=== PATIENT | female | born 1985 | race American Indian/Alaskan Native ===

== ENCOUNTER 2019-03-12 14:40 | Observation (INO) | payer OTHER ==
--- NOTE | 2019-03-12 14:44 | Emergency Department Report ---
Blank Doc - Documentation Documentation: 33-year-old female that presents with syncopal episode with n/v and abdominal pain. This initial assessment/diagnostic orders/clinical plan/treatment(s) is/are subject to change based on patient's health status, clinical progression and re- assessment by fellow clinical providers in the ED. Further treatment and workup at subsequent clinical providers discretion. Patient/guardians urged not to elope from the ED as their condition may be serious if not clinically assessed and managed. Initial orders include: 1- Patient sent to [facility] for further evaluation and treatment 2- labs 3- UA 4- EKG
[2019-03-12] MEDS ORDERED: SODIUM CHLORIDE 0.9% 1000 ML 1,000 ML IV ONE ×4 (15:10→20:29)
[2019-03-12] MEDS ORDERED: KETOROLAC 30 MG/1 ML INJ IV ONE ×2 (15:10→17:25)
[2019-03-12] MEDS ORDERED: FAMOTIDINE 20 MG/2 ML INJ IV ONE (15:11)
[2019-03-12] MEDS ORDERED: METOCLOPRAMIDE 10 MG/2 ML INJ IV ONE (15:11)
[2019-03-12 15:20] LABS: Basophils # (Auto) 0.1 K/mm3 (0.0-0.1); Basophils % (Auto) 0.4 % (0.0-1.8); Hematocrit 40.1 % (30.3-42.9); Hemoglobin 13.9 gm/dl (10.1-14.3); Lymphocytes # (Auto) 2.2 K/mm3 (1.2-5.4); Lymphocytes % (Auto) 12.1 % (13.4-35.0); Mean Corpuscular HGB Conc 35 % (30-34); Mean Corpuscular Volume 93 fl (79-97); Monocytes % (Auto) 5.3 % (0.0-7.3); Platelet Count 196 K/mm3 (140-440); Red Blood Count 4.34 M/mm3 (3.65-5.03)
--- NOTE | 2019-03-12 15:20 | Emergency Department Report ---
<CHANNING DUFFY III - Last Filed: 03/12/19 20:27> ED N/V/D HPI - General Chief complaint: Nausea/Vomiting/Diarrhea Stated complaint: FAINTED/VOMIT/WEAK Time Seen by Provider: 03/12/19 14:43 - Related Data Home Medications Medication Instructions Recorded Confirmed Last Taken No Known Home Medications [No 03/12/19 03/12/19 Unknown Reported Home Medications] Allergies Allergy/AdvReac Type Severity Reaction Status Date / Time No Known Allergies Allergy Unverified 03/12/19 14:58 ED Past Medical Hx - Medications Home Medications: Home Medications Medication Instructions Recorded Confirmed Last Taken Type No Known Home Medications [No 03/12/19 03/12/19 Unknown History Reported Home Medications] ED Course - Reevaluation(s) Reevaluation #1: Patient stable for discharge however the patient able to tolerate by mouth challenge and continues to vomit even with meds. Patient will be admitted to the hospitalist service if does not stop vomiting with another round of antiemetics. I discussed plan of care outpatient. Patient agrees plan of care. At this time I will hold the patient's discharge. 03/12/19 18:31 Reevaluation #2: She continues to dry heave and redness. Patient will be given another antiemetic 03/12/19 19:23 Reevaluation #3: She continues to dry heave. Patient's blood pressure has decreased. Patient will be admitted to the hospitalist service. 03/12/19 20:27 - Consultations Consultation #1: Hospitalist consultation for admission. Hospitalist to admit patient. 03/12/19 20:29 ED Medical Decision Making - Lab Data Result diagrams: 03/12/19 14:59 03/12/19 14:59 Critical Care Time: Yes Critical care time in (mins) excluding proc time.: 35 Critical Care Time: 35 minutes ED Disposition Clinical Impression: Hypokalemia, Metabolic acidosis, SIRS (systemic inflammatory response syndrome) Nausea & vomiting Qualifiers: Vomiting type: unspecified Vomiting Intractability: intractable Qualified Code(s): R11.2 - Nausea with vomiting, unspecified Gastritis Qualifiers: Gastritis type: unspecified gastritis Chronicity: acute Gastritis bleeding: without bleeding Qualified Code(s): K29.00 - Acute gastritis without bleeding Hypotension Qualifiers: Hypotension type: unspecified hypotension type Qualified Code(s): I95.9 - Hypotension, unspecified Disposition: DC-09 OP ADMIT IP TO THIS HOSP Is pt being admited?: Yes Does the pt Need Aspirin: No Condition: Critical Time of Disposition: 18:32 <PHOENIX POLLACK - Last Filed: 03/13/19 08:26> ED N/V/D HPI - General Source: patient Mode of arrival: Ambulatory Limitations: No Limitations - History of Present Illness Initial comments: Is a 33-year-old female who presents to ED complaining of recurrent nausea and vomiting started this morning. Patient states that she does not take any medications. Patient also admits generalized abdominal pain. Describes abdominal pain as crampy and generalized all over Patient states she trying to vomit but nothing is coming out. Patient states the symptoms started suddenly this morning. Patient states she is not having any diarrhea nor did she eat anything unusual recently. Patient did mention that she had a gallbladder removed last year. MD complaint: nausea, vomiting, abdominal pain Description of Vomiting: watery ED Review of Systems ROS: Stated complaint: FAINTED/VOMIT/WEAK Other details as noted in HPI Comment: All other systems reviewed and negative ED Past Medical Hx - Past Medical History Previous Medical History?: No - Surgical History Past Surgical History?: Yes Hx Cholecystectomy: Yes ED Physical Exam - General Limitations: No Limitations General appearance: alert, in no apparent distress - Head Head exam: Present: atraumatic, normocephalic - Eye Eye exam: Present: normal appearance - ENT ENT exam: Present: mucous membranes moist - Neck Neck exam: Present: normal inspection - Respiratory Respiratory exam: Present: normal lung sounds bilaterally. Absent: respiratory distress - Cardiovascular Cardiovascular Exam: Present: regular rate, normal rhythm. Absent: systolic murmur, diastolic murmur, rubs, gallop - GI/Abdominal GI/Abdominal exam: Present: soft, normal bowel sounds. Absent: distended, tenderness, rigid, mass, bruit, pulsatile mass - Extremities Exam Extremities exam: Present: normal inspection - Back Exam Back exam: Present: normal inspection - Neurological Exam Neurological exam: Present: alert, oriented X3 - Psychiatric Psychiatric exam: Present: normal affect, normal mood - Skin Skin exam: Present: warm, dry, intact, normal color. Absent: rash ED Course Vital Signs 03/12/19 03/12/19 03/12/19 16:59 18:33 19:47 Temperature 98.3 F Pulse Rate 70 80 62 Respiratory 16 16 22 Rate Blood Pressure 97/75 Blood Pressure 135/71 116/62 [Left] O2 Sat by Pulse 98 100 98 Oximetry 03/12/19 22:00 Temperature Pulse Rate 56 L Respiratory 18 Rate Blood Pressure Blood Pressure 110/78 [Left] O2 Sat by Pulse 98 Oximetry ED Medical Decision Making - Lab Data Result diagrams: 03/12/19 14:59 03/12/19 14:59 Laboratory Last Values WBC 18.5 K/mm3 (4.5-11.0) H 03/12/19 14:59 RBC 4.34 M/mm3 (3.65-5.03) 03/12/19 14:59 Hgb 13.9 gm/dl (10.1-14.3) 03/12/19 14:59 Hct 40.1 % (30.3-42.9) 03/12/19 14:59 MCV 93 fl (79-97) 03/12/19 14:59 MCH 32 pg (28-32) 03/12/19 14:59 MCHC 35 % (30-34) H 03/12/19 14:59 RDW 13.0 % (13.2-15.2) L 03/12/19 14:59 Plt Count 196 K/mm3 (140-440) 03/12/19 14:59 Lymph % (Auto) 12.1 % (13.4-35.0) L 03/12/19 14:59 [place] % (Auto) 5.3 % (0.0-7.3) 03/12/19 14:59 Eos % (Auto) 0.0 % (0.0-4.3) 03/12/19 14:59 Baso % (Auto) 0.4 % (0.0-1.8) 03/12/19 14:59 Lymph # 2.2 K/mm3 (1.2-5.4) 03/12/19 14:59 [place] # 1.0 K/mm3 (0.0-0.8) H 03/12/19 14:59 Eos # 0.0 K/mm3 (0.0-0.4) 03/12/19 14:59 Baso # 0.1 K/mm3 (0.0-0.1) 03/12/19 14:59 Seg Neutrophils % 82.2 % (40.0-70.0) H 03/12/19 14:59 Seg Neutrophils # 15.1 K/mm3 (1.8-7.7) H 03/12/19 14:59 Sodium 145 mmol/L (137-145) 03/12/19 14:59 Potassium 3.1 mmol/L (3.6-5.0) L 03/12/19 14:59 Chloride 106.9 mmol/L (98-107) 03/12/19 14:59 Carbon Dioxide 12 mmol/L (22-30) L 03/12/19 14:59 Anion Gap 29 mmol/L 03/12/19 14:59 BUN 11 mg/dL (7-17) 03/12/19 14:59 Creatinine 0.7 mg/dL (0.7-1.2) 03/12/19 14:59 Estimated GFR > 60 ml/min 03/12/19 14:59 BUN/Creatinine Ratio 16 % 03/12/19 14:59 Glucose 109 mg/dL (65-100) H 03/12/19 14:59 Calcium 9.0 mg/dL (8.4-10.2) 03/12/19 14:59 Total Bilirubin 0.90 mg/dL (0.1-1.2) 03/12/19 14:59 AST 26 units/L (5-40) 03/12/19 14:59 ALT 18 units/L (7-56) 03/12/19 14:59 Alkaline Phosphatase 54 units/L (35-129) 03/12/19 14:59 Total Protein 7.9 g/dL (6.3-8.2) 03/12/19 14:59 Albumin 4.7 g/dL (3.9-5) 03/12/19 14:59 Albumin/Globulin Ratio 1.5 % 03/12/19 14:59 Lipase 9 units/L (13-60) L 03/12/19 14:59 HCG, Qual Negative (Negative) 03/12/19 14:59 Urine Color Yellow (Yellow) 03/12/19 15:21 Urine Turbidity Clear (Clear) 03/12/19 15:21 Urine pH 5.0 (5.0-7.0) 03/12/19 15:21 Ur Specific [place] 1.026 (1.003-1.030) 03/12/19 15:21 Urine Protein 30 mg/dl mg/dL (Negative) 03/12/19 15:21 Urine Glucose (UA) Neg mg/dL (Negative) 03/12/19 15:21 Urine Ketones 80 mg/dL (Negative) 03/12/19 15:21 Urine Blood Neg (Negative) 03/12/19 15:21 Urine Nitrite Neg (Negative) 03/12/19 15:21 Urine Bilirubin Neg (Negative) 03/12/19 15:21 Urine Urobilinogen < 2.0 mg/dL (<2.0) 03/12/19 15:21 Ur Leukocyte Esterase Neg (Negative) 03/12/19 15:21 Urine WBC (Auto) 4.0 /HPF (0.0-6.0) 03/12/19 15:21 Urine RBC (Auto) 1.0 /HPF (0.0-6.0) 03/12/19 15:21 U Epithel Cells (Auto) 4.0 /HPF (0-13.0) 03/12/19 15:21 Urine Mucus Few /HPF 03/12/19 15:21 - Radiology Data Radiology results: report reviewed, image reviewed COMPARISON: None TECHNIQUE: Routine abdominal and pelvic CT exam performed without contrast. Lack of intravenous contrast limits evaluation of the vascular and solid organs.. All CT scans at this location are performed using CT dose reduction for ALARA by means of automated exposure control. FINDINGS: CT ABDOMEN: Lung Bases: No significant abnormality. Liver: No significant abnormality. Biliary: Gallbladder is surgically absent. Spleen: No significant abnormality. Unenlarged. Pancreas: No significant abnormality. Adrenals: No significant abnormality. Kidneys: No stones, pelvocaliectasis, ureterectasis. No perinephric or periureteral stranding. Lymphatics: No lymphadenopathy. Vasculature: No significant abnormality. Bowel/Peritoneum: No significant abnormality. No free air. No free fluid. Normal appendix. CT PELVIC: : No significant abnormality. There are some normal follicles in both ovaries. Lymphatics: No lymphadenopathy. Osseous Structures: No aggressive appearing osseous lesions. Additional Findings: There are multiple tiny injection granulomas in the buttocks bilaterally. IMPRESSION: 1. No acute findings. Signer Name: Valente Welch MD Signed: 03/12/2019 5:08 PM Workstation Name: [id number] Transcribed By: MARTHA Dictated By: Valente Welch MD Electronically Authenticated By: Valente Welch MD Signed Date/Time: 03/12/19 1708 - Medical Decision Making 33-year-old female who presents with acute vomiting. Patient had elevated WBCs which is mostly secondary to acute vomiting.she also had reduced potassium. All labs within normal limits. Patient received 2 liter of fluids, Reglan, Pepcid and pain medication. CT scan of the abdomen and pelvis shows no acute findings. See report above. As the patient to follow-up with my deposit refund clerk as referred. Patient was able to stop active vomiting ED upon reevaluation and was sleeping comfortably in ED bed. Critical care attestation.: If time is entered above; I have spent that time in minutes in the direct care of this critically ill patient, excluding procedure time. ED Disposition Is pt being admited?: No Does the pt Need Aspirin: No Time of Disposition: 17:23
[2019-03-12 15:38] LABS: Bilirubin,Urine NEG (Negative); Blood,Urine NEG (Negative); Color,Urine Yellow (Yellow); Mucus,Urine FEW /HPF; Urobilinogen,Urine < 2.0 mg/dL (<2.0)
[2019-03-12 15:42] LABS: Alanine Aminotransferase 18 units/L (7-56); Albumin 4.7 g/dL (3.9-5); BUN/Creatinine Ratio 16; Blood Urea Nitrogen 11 mg/dL (7-17); Hemolysis Index 8
[2019-03-12] MEDS ORDERED: POTASSIUM CHLORIDE ER 20 MEQ TAB PO ONE ×2 (15:58→16:03)
[2019-03-12] MEDS ORDERED: LORazepam 2 MG/ML VIAL ONE (16:58)
[2019-03-12] MEDS ORDERED: LORazepam 2 MG/ML VIAL IV ONE (16:59)
--- NOTE | 2019-03-12 17:12 | Cat Scan Report ---
CT ABDOMEN AND PELVIS WITHOUT CONTRAST HISTORY: Abdominal pain, nausea and vomiting COMPARISON: None TECHNIQUE: Routine abdominal and pelvic CT exam performed without contrast. Lack of intravenous cont rast limits evaluation of the vascular and solid organs.. All CT scans at this location are performed using CT dose reduction for ALARA by means of automated exposure control. FINDINGS: CT ABDOMEN: Lung Bases: No significant abnormality. Liver: No significant abnormality. Biliary: Gallbladder is surgically absent. Spleen: No significant abnormality. Unenlarged. Pancreas: No significant abnormality. Adrenals: No significant abnormality. Kidneys: No stones, pelvocaliectasis, ureterectasis. No perinephric or periureteral stranding. Lymphatics: No lymphadenopathy. Vasculature: No significant abnormality. Bowel/Peritoneum: No significant abnormality. No free air. No free fluid. Normal appendix. CT PELVIC: : No significant abnormality. There are some normal follicles in both ovaries. Lymphatics: No lymphadenopathy. Osseous Structures: No aggressive appearing osseous lesions. Additional Findings: There are multiple tiny injection granulomas in the buttocks bilaterally. IMPRESSION: 1. No acute findings. Signer Name: Valente Welch MD Signed: 03/12/2019 5:08 PM Workstation Name: [id number]
[2019-03-12] MEDS ORDERED: ONDANSETRON 4 MG/2 ML INJ IV ONE (19:22)
[2019-03-12] MEDS ORDERED: PROMETHAZINE 25 MG RECT SUPP PR ONE (19:22)
[2019-03-12] MEDS ORDERED: HYDROmorphone 1 MG/1 ML INJ ONE (20:08)
[2019-03-12] MEDS ORDERED: HYDROmorphone 1 MG/1 ML INJ IV ONE (20:11)
[2019-03-12] MEDS ORDERED: ONDANSETRON 4 MG/2 ML INJ IV PRN (20:28)
[2019-03-12] MEDS ORDERED: ALBUTEROL 2.5 MG/3 ML NEBU IH PRN (20:28)
[2019-03-12] MEDS ORDERED: ACETAMINOPHEN 325 MG TAB PO PRN (20:28)
--- NOTE | 2019-03-12 20:32 | History and Physical Report ---
History of Present Illness Chief complaint: My stomach hurts History of present illness: 33 YO Female with NO PMH presents to ED for evaluation. Pt states that she has experienced abdominal pain, nausea and multiple episodes of vomiting year-old female who presents to ED complaining of recurrent nausea and vomiting started this morning. Patient states that her pain is 4/10, intermittent, generalized, constant, worsened with movement. Pt also reports that she is unable to tolerate oral diet. Pt transported to [facility] via private vehicle. Pt seen and evaluated in ED and found to have symptoms consistent with SIRS, Gastritis, and Intractible nausea and vomiting. Pt placed in observation status, and admitted to medical floor. Pt treated with IV antibiotic therapy and supportive care. Pt denies fever, chills, CP, palpitations, Trauma, BRBPR, Ingestion of Food/Water from new or different sources. No prior admission for review. No medication listed for reconciliation at time of admission. Past History Past Medical History: No medical history, other (reviewed) Past Surgical History: cholecystectomy Social history: single. denies: smoking, alcohol abuse, prescription drug abuse Family history: hypertension Medications and Allergies Allergies Allergy/AdvReac Type Severity Reaction Status Date / Time No Known Allergies Allergy Unverified 03/12/19 14:58 Home Medications Medication Instructions Recorded Confirmed Last Taken Type No Known Home Medications [No 03/12/19 03/12/19 Unknown History Reported Home Medications] Active Meds: Active Medications Acetaminophen (Tylenol) 650 mg PO Q4H PRN PRN Reason: Pain MILD(1-3)/Fever >100.5/RODRIGUEZ Albuterol (Proventil) 2.5 mg IH Q4HRT PRN PRN Reason: Shortness Of Breath Sodium Chloride (Nacl 0.9% 1000 Ml) 1,000 mls @ 999 mls/hr IV BOLUS ONE Stop: 03/12/19 21:29 Sodium Chloride (Nacl 0.9% 1000 Ml) 1,000 mls @ 125 mls/hr IV DIRECT TRACE Ondansetron HCl (Zofran) 4 mg IV Q8H PRN PRN Reason: Nausea And Vomiting Sodium Chloride (Sodium Chloride Flush Syringe 10 Ml) 10 ml IV BID TRACE Sodium Chloride (Sodium Chloride Flush Syringe 10 Ml) 10 ml IV PRN PRN PRN Reason: LINE FLUSH Review of Systems Constitutional: no weight loss, no weight gain, no fever, no chills Breasts: no change in shape, no swelling, no mass Cardiovascular: no chest pain, no rapid/irregular heart beat, no edema, no lightheadedness Respiratory: no cough, no cough with sputum Gastrointestinal: abdominal pain, nausea, vomiting, loss of appetite, no diarrhea, no constipation, no BRBPR, no melena, no hematochezia Genitourinary Female: no pelvic pain, no flank pain, no menorrhagia, no dysuria, no urinary frequency, no urgency Rectal: no pain, no incontinence, no bleeding Musculoskeletal: no neck stiffness, no neck pain, no shooting arm pain, no arm numbness/tingling, no shooting leg pain, no redness of joints Integumentary: no rash, no pruritis, no redness, no wounds, no jaundice, no boils Neurological: no paralysis, no weakness, no parathesias, no numbness, no tinglin g, no seizures Psychiatric: no anxiety, no memory loss, no change in sleep habits, no insomnia, no change in appetite, no change in libido, no suicidal ideation, no disorienta tion Endocrine: no cold intolerance, no polyphagia, no polyuria, no nocturia Hematologic/Lymphatic: no easy bruising, no easy bleeding, no lymphadenopathy Allergic/Immunologic: no allergic rhinitis, no wheezing, no persistent infections, no angioedema Exam - Constitutional Vitals: Temp Pulse Resp BP Pulse Ox 98.3 F 62 22 97/75 98 03/12/19 19:47 03/12/19 19:47 03/12/19 19:47 03/12/19 19:47 03/12/19 19:47 General appearance: Present: mild distress - EENT Eyes: Present: PERRL ENT: hearing intact, clear oral mucosa - Neck Neck: Present: supple, normal ROM - Respiratory Respiratory effort: normal Respiratory: bilateral: CTA - Cardiovascular Heart Sounds: Present: S1 & S2. Absent: rub, click - Extremities Extremities: pulses symmetrical, No edema Peripheral Pulses: within normal limits - Abdominal General gastrointestinal: Present: soft, tender, non-distended, normal bowel sounds. Absent: hypoactive bowel sounds, hepatomegaly, splenomegaly, mass, hernia Female genitourinary: Present: normal - Integumentary Integumentary: Present: clear, warm, dry - Musculoskeletal Musculoskeletal: gait normal, strength equal bilaterally - Psychiatric Psychiatric: appropriate mood/affect, intact judgment & insight - Neurologic Neurologic: CNII-XII intact, moves all extremities Results - Labs CBC & Chem 7: 03/12/19 14:59 03/12/19 14:59 Labs: Abnormal lab results 03/12/19 03/12/19 03/12/19 Range/Units 14:59 14:59 14:59 WBC 18.5 H (4.5-11.0) K/mm3 MCHC 35 H (30-34) % RDW 13.0 L (13.2-15.2) % Lymph % (Auto) 12.1 L (13.4-35.0) % [place] # 1.0 H (0.0-0.8) K/mm3 Seg Neutrophils % 82.2 H (40.0-70.0) % Seg Neutrophils # 15.1 H (1.8-7.7) K/mm3 Potassium 3.1 L (3.6-5.0) mmol/L Carbon Dioxide 12 L (22-30) mmol/L Glucose 109 H (65-100) mg/dL Lipase 9 L (13-60) units/L Assessment and Plan - Patient Problems (1) SIRS (systemic inflammatory response syndrome) Current Visit: Yes Status: Acute Plan to address problem: IV antibiotic therapy, CBC, CMP, CT Abdomen/Pelvis, Abdominal ultrasound, lactic acid, urinalysis, chest x ray (2) Intractable nausea and vomiting Current Visit: Yes Status: Acute Plan to address problem: antiemetic therapy, bowel rest, serial abdominal exam, CT abdomen (3) Gastritis Current Visit: Yes Status: Acute Qualifiers: Gastritis type: unspecified gastritis Chronicity: acute Gastritis bleeding: without bleeding Qualified Code(s): K29.00 - Acute gastritis without bleeding Plan to address problem: IV antibiotic therapy, PPI therapy, antiemetic therapy, IVF resuscitation therapy. (4) DVT prophylaxis Current Visit: Yes Status: Acute Plan to address problem: SCD to BLE while in bed, Pt ambulatory
[2019-03-12] MEDS ORDERED: SODIUM BICARB 8.4% 50 MEQ/50 ML SYRINGE IV ONE ×2 (20:33→21:16)
[2019-03-12] MEDS ORDERED: SODIUM CHLORIDE 0.9% 1000 ML 1,000 ML IV SCH (21:00)
[2019-03-12] MEDS ORDERED: SODIUM CHLORIDE 0.9% 1000 ML 1,000 ML ONE (21:12)
[2019-03-12] MEDS ORDERED: metroNIDAZOLE/NS 500 MG/100 ML 500 MG/100 ML BAG IV ONE (21:14)
[2019-03-12] MEDS: metroNIDAZOLE/NS 500 MG/100 ML 500 MG/100 ML BAG IV SCH (21:33)
--- NOTE | 2019-03-12 22:15 | Ultrasound Report ---
ULTRASOUND ABDOMEN, COMPLETE INDICATION: abdominal pain. COMPARISON: CT of the abdomen and pelvis done earlier on 03/12/2019. FINDINGS: Pancreas: A vague 3.8 x 3.4 x 3.1 cm hypoechoic structure was measured in the region of the tail of t he pancreas. In correlation with the recent CT, this appears to be a small splenule. Abdominal Aorta: No significant abnormality. IVC: No significant abnormality. Liver: The liver measures 19 cm in length. No significant abnormality. Normal hepatopedal blood flow in the main portal vein. Gallbladder: Surgically absent. Bile ducts: No significant abnormality. Common bile duct measures 1.1 mm. Right kidney: 11.0 cm in length. No significant abnormality. Left kidney: 11.0 cm in length. No significant abnormality. Spleen: No significant abnormality. Free fluid: None. Additional Findings: None. IMPRESSION: 1. No acute findings. 2. Previous cholecystectomy. Signer Name: Valente Welch MD Signed: 03/12/2019 10:11 PM Workstation Name: [id number]
[2019-03-13] MEDS: PIPERACIL/TAZOBACTA 4.5/NS 100 4.5 GM/100 ML VIAL IV SCH ×2 (00:14→05:55)
[2019-03-13 05:24] LABS: Amphetamine Screen,Urine PRESUMPTIVE NEGATIVE; Benzodiazepines Screen,Urine PRESUMPTIVE NEGATIVE; Cocaine Screen,Urine PRESUMPTIVE NEGATIVE; Methadone Screen,Urine PRESUMPTIVE NEGATIVE; Opiate Screen,Urine PRESUMPTIVE NEGATIVE
[2019-03-13 05:33] LABS: Cannabinoid Screen,Urine PRESUMPTIVE POSITIVE
[2019-03-13] MEDS: metroNIDAZOLE/NS 500 MG/100 ML 500 MG/100 ML BAG IV SCH (05:55)
[2019-03-13] MEDS ORDERED: SODIUM CHLORIDE 0.9% 1000 ML 2,000 ML IV ONE (09:00)
[2019-03-13 09:24] LABS: Basophils % (Auto) 0.2 % (0.0-1.8); Eosinophils % (Auto) 0.1 % (0.0-4.3); Hematocrit 32.6 % (30.3-42.9); Hemoglobin 11.3 gm/dl (10.1-14.3); Lymphocytes # (Auto) 2.2 K/mm3 (1.2-5.4); Lymphocytes % (Auto) 22.7 % (13.4-35.0); Mean Corpuscular HGB Conc 35 % (30-34); Mean Corpuscular Volume 92 fl (79-97); Monocytes % (Auto) 10.4 % (0.0-7.3); Platelet Count 105 K/mm3 (140-440); Red Blood Count 3.54 M/mm3 (3.65-5.03)
[2019-03-13 09:35] LABS: Alanine Aminotransferase 14 units/L (7-56); Albumin 3.6 g/dL (3.9-5); BUN/Creatinine Ratio 18; Blood Urea Nitrogen 11 mg/dL (7-17); Calcium 7.2 mg/dL (8.4-10.2); Hemolysis Index 2
[2019-03-13] MEDS ORDERED: MORPHINE 2 MG/1 ML INJ IV PRN (10:29)
--- NOTE | 2019-03-13 10:52 | Discharge Summary ---
Providers - Providers Date of Admission: 03/12/19 20:28 Attending physician: LITO MELENDEZ MD Primary care physician: [employer] Hospitalization Reason for admission: Interactable nausea and vomiting Condition: Stable Hospital course: 33 YO Female with NO PMH presents to ED for evaluation. Pt states that she has experienced abdominal pain, nausea and multiple episodes of vomiting year-old female who presents to ED complaining of recurrent nausea and vomiting started this morning. Patient states that her pain is 4/10, intermittent, generalized, constant, worsened with movement. Pt also reports that she is unable to tolerate oral diet. Pt transported to [facility] via private vehicle. Pt seen and evaluated in ED and found to have symptoms consistent with SIRS, Gastritis, and Intractible nausea and vomiting. Pt placed in observation status, and admitted to medical floor. Pt treated with IV antibiotic therapy and supportive care. Pt denies fever, chills, CP, palpitations, Trauma, BRBPR, Ingestion of Food/Water from new or different sources. No prior admission for review. No medication listed for reconciliation at time of admission. * Patient improved with Hydration. * Tbili was slightly elevated, Potassium improved with replacement * Patient was started on Diet * Counselling was provided about THC but patient insists that it helps her stomach * She is non toxic appearing and can be discharged with outpatient follow up with PCP and GI, the latter if needed Dx SIRS without organ dysfunction Gastritis Hyperemesis secondary to THC Interactable nausea and vomiting as noted above Hypokalemia Leukocytosis Disposition: DC-01 TO HOME OR SELFCARE Time spent for discharge: 35 mins Core Measure Documentation - Palliative Care Palliative Care/ Comfort Measures: Not Applicable - Core Measures Any of the following diagnoses?: none Exam - Constitutional Vitals: Temp Pulse Resp BP Pulse Ox 99.1 F 53 L 16 99/54 94 03/13/19 05:34 03/13/19 05:34 03/13/19 05:34 03/13/19 05:34 03/13/19 08:42 General appearance: Present: no acute distress, well-nourished - EENT Eyes: Present: EOM intact ENT: hearing intact, clear oral mucosa, other (Perioral Piercing) - Neck Neck: Present: supple - Respiratory Respiratory effort: normal Respiratory: bilateral: CTA - Cardiovascular Rhythm: regular Heart Sounds: Present: S1 & S2, systolic murmur - Extremities Extremities: no ischemia, pulses intact, pulses symmetrical, No edema, normal temperature, normal color, Full ROM - Abdominal General gastrointestinal: Present: soft, non-tender, non-distended, normal bowel sounds - Integumentary Integumentary: Present: warm, dry (PIERCING) - Musculoskeletal Musculoskeletal: strength equal bilaterally, generalized weakness - Psychiatric Psychiatric: appropriate mood/affect, intact judgment & insight, cooperative - Neurologic Neurologic: CNII-XII intact, moves all extremities - Allied Health Allied health notes reviewed: nursing Plan Activity: advance as tolerated, fall precautions Diet: low fat Special Instructions: smoking cessation Follow up with: PRIMARY CARE, [Primary Care Provider] - 7 Days Prescriptions: Ondansetron [Zofran Odt] 4 mg PO Q8HR #20 tabpat
[2019-03-13] MEDS: POTASSIUM CHLORIDE 10 MEQ 10 MEQ/100 ML BAG IV SCH ×2 (11:17→13:05)
[2019-03-13 12:41] LABS: Bilirubin,Direct 0.3 mg/dL (0-0.2)
[2019-03-13 15:23] VITALS: BP 120/80
== END 2019-03-13 15:22 | disposition home or self-care (01) ==
LOC: ED 14:40 → 3A 20:28
PROVIDERS: ADMIT Internal Medicine; ATTEND Internal Medicine
DX: K29.70 Gastritis, unspecified, without bleeding (principal); R65.10 Systemic inflammatory response syndrome (SIRS) of non-infectious origin without acute organ dysfunction; R11.2 Nausea with vomiting, unspecified; Z90.49 Acquired absence of other specified parts of digestive tract; I95.9 Hypotension, unspecified
CPT/HCPCS: 36415; 74176; 76700; 80053; 80307; 81001; 82140; 82247; 82248; 82550; 83690; 84703; 85025; 93005; 93010; 96361; 96365; 96366; 96367; 96368; 96375; 96376; 99291; G0378; J1170; J1885; J2060; J2405; J2543; J2765; J3480; J7030

== ENCOUNTER 2019-03-14 12:18 | Observation (INO) | payer SELFPAY ==
[2019-03-14] MEDS ORDERED: ONDANSETRON 4 MG/2 ML INJ ONE (12:40)
[2019-03-14] MEDS ORDERED: ONDANSETRON 4 MG/2 ML INJ IV ONE (12:40)
[2019-03-14] MEDS ORDERED: PROMETHAZINE 25 MG RECT SUPP PR ONE ×3 (12:52→12:55)
[2019-03-14] MEDS ORDERED: fentaNYL 100 MCG/2 ML INJ IV ONE ×3 (12:54→14:28)
[2019-03-14] MEDS ORDERED: diphenhydrAMINE 50 MG/ML VIAL IV ONE ×2 (12:55)
[2019-03-14] MEDS ORDERED: SODIUM CHLORIDE 0.9% 1000 ML 1,000 ML IV ONE (13:24)
--- NOTE | 2019-03-14 13:32 | Emergency Department Report ---
HPI - General Chief Complaint: Abdominal Pain Time Seen by Provider: 03/14/19 12:42 - HPI HPI: Room 22 The patient is a 33-year-old female presented with a chief complaint of intractable nausea or vomiting. Patient was discharged yesterday for intracta ble nausea and vomiting. During the patient's recent admission she had a CT abdomen and pelvis performed as well as right upper quadrant SO both which were negative. The patient states she was tolerating po just prior to discharge however at home and her symptoms returned. Patient states she's had intractable nausea vomiting. Patient complains of periumbilical abdominal pain. Patient describes abdominal pain as a soreness from the frequent vomiting. The patient gets her pain score "20/10." Location: [See above] Duration: [See above] Quality: [See above] Severity: [See above] Timing: [See above] Context: [See above] Modifying factors: [See above] Associated signs and symptoms: [see above] ED Past Medical Hx - Surgical History Past Surgical History?: Yes Hx Cholecystectomy: Yes - Family History Family history: no significant - Social History Smoking Status: Never Smoker Substance Use Type: None (denies illicit drug use), Alcohol - Medications Home Medications: Home Medications Medication Instructions Recorded Confirmed Last Taken Type Ondansetron [Zofran Odt] 4 mg PO Q8HR #20 tab.rapdis 03/13/19 Unknown Rx ED Review of Systems ROS: Stated complaint: VOMIT/ABD PAIN EXTREME Other details as noted in HPI Constitutional: denies: fever Eyes: denies: eye pain ENT: denies: throat pain Respiratory: no symptoms reported Cardiovascular: denies: chest pain Endocrine: no symptoms reported Gastrointestinal: abdominal pain, nausea, vomiting Genitourinary: denies: dysuria Musculoskeletal: denies: back pain Neurological: denies: headache Physical Exam - Physical Exam Vital Signs: Vital Signs 03/14/19 03/14/19 03/14/19 12:21 13:09 13:11 Temperature 97.9 F 98.5 F Pulse Rate 67 98 H Respiratory 16 18 16 Rate Blood Pressure 135/74 127/74 [Right] O2 Sat by Pulse 99 100 100 Oximetry Physical Exam: GENERAL: The patient is well-developed well-nourished female lying on stretcher exhibiting frequent vomiting and gagging. [] HEENT: Normocephalic. Atraumatic. Extraocular motions are intact. Patient has moist mucous membranes. NECK: Supple. Trachea midline CHEST/LUNGS: Clear to auscultation. There is no respiratory distress noted. HEART/CARDIOVASCULAR: Regular. There is no tachycardia. There is no gallop rub or murmur. ABDOMEN: Abdomen is soft, but sore from frequent vomiting. Patient has normal bowel sounds. There is no abdominal distention. SKIN: There is no rash. There is no edema. There is no diaphoresis. NEURO: The patient is awake, alert, and oriented. The patient is cooperative. The patient has normal speech MUSCULOSKELETAL: There is no evidence of acute injury. ED Course Vital Signs 03/14/19 03/14/19 03/14/19 12:21 13:09 13:11 Temperature 97.9 F 98.5 F Pulse Rate 67 98 H Respiratory 16 18 16 Rate Blood Pressure 135/74 127/74 [Right] O2 Sat by Pulse 99 100 100 Oximetry ED Medical Decision Making - Lab Data Result diagrams: 03/14/19 14:00 03/14/19 14:00 Laboratory Tests 03/14/19 03/14/19 03/14/19 14:00 14:00 14:00 WBC 6.0 RBC 4.03 Hgb 12.9 Hct 36.7 MCV 91 MCH 32 MCHC 35 H RDW 12.6 L Plt Count 105 L Lymph % (Auto) 19.3 [place] % (Auto) 6.2 Eos % (Auto) 0.1 Baso % (Auto) 0.5 Lymph # 1.2 [place] # 0.4 Eos # 0.0 Baso # 0.0 Seg Neutrophils % 73.9 H Seg Neutrophils # 4.5 PT 13.0 INR 0.99 APTT 28.4 Sodium 137 Potassium 3.1 L Chloride 103.6 Carbon Dioxide 16 L Anion Gap 21 BUN 6 L Creatinine 0.6 L Estimated GFR > 60 BUN/Creatinine Ratio 10 Glucose 70 Calcium 8.6 D Total Bilirubin 1.50 H AST 38 ALT 29 Alkaline Phosphatase 45 Total Protein 7.1 D Albumin 4.1 Albumin/Globulin Ratio 1.4 Lipase 8 L HCG, Qual Urine Color Urine Turbidity Urine pH Ur Specific [place] Urine Protein Urine Glucose (UA) Urine Ketones Urine Blood Urine Nitrite Urine Bilirubin Urine Urobilinogen Ur Leukocyte Esterase Urine WBC (Auto) Urine RBC (Auto) U Epithel Cells (Auto) Urine Mucus 03/14/19 03/14/19 14:00 Unknown WBC RBC Hgb Hct MCV MCH MCHC RDW Plt Count Lymph % (Auto) [place] % (Auto) Eos % (Auto) Baso % (Auto) Lymph # [place] # Eos # Baso # Seg Neutrophils % Seg Neutrophils # PT INR APTT Sodium Potassium Chloride Carbon Dioxide Anion Gap BUN Creatinine Estimated GFR BUN/Creatinine Ratio Glucose Calcium Total Bilirubin AST ALT Alkaline Phosphatase Total Protein Albumin Albumin/Globulin Ratio Lipase HCG, Qual Negative Urine Color Straw Urine Turbidity Clear Urine pH 6.0 Ur Specific [place] 1.009 Urine Protein <15 mg/dl Urine Glucose (UA) Neg Urine Ketones 20 Urine Blood Lg Urine Nitrite Neg Urine Bilirubin Neg Urine Urobilinogen < 2.0 Ur Leukocyte Esterase Neg Urine WBC (Auto) 1.0 Urine RBC (Auto) 77.0 U Epithel Cells (Auto) 6.0 Urine Mucus Few - Differential Diagnosis gastroparesis, gastritis Critical care attestation.: If time is entered above; I have spent that time in minutes in the direct care of this critically ill patient, excluding procedure time. ED Disposition Clinical Impression: Intractable nausea and vomiting Disposition: OP ADMIT IP TO THIS HOSP Is pt being admited?: Yes Does the pt Need Aspirin: No Condition: Fair Instructions: Abdominal Pain (ED) Time of Disposition: 15:13 (hospitalist notified (Dr Marshall))
[2019-03-14 14:04] LABS: Bilirubin,Urine NEG (Negative); Blood,Urine LG (Negative); Color,Urine Straw (Yellow); Mucus,Urine FEW /HPF; Protein,Urine <15 mg/dL mg/dL (Negative); Urobilinogen,Urine < 2.0 mg/dL (<2.0)
[2019-03-14 14:21] LABS: Basophils % (Auto) 0.5 % (0.0-1.8); Eosinophils % (Auto) 0.1 % (0.0-4.3); Hematocrit 36.7 % (30.3-42.9); Hemoglobin 12.9 gm/dl (10.1-14.3); Lymphocytes # (Auto) 1.2 K/mm3 (1.2-5.4); Lymphocytes % (Auto) 19.3 % (13.4-35.0); Mean Corpuscular HGB Conc 35 % (30-34); Mean Corpuscular Volume 91 fl (79-97); Monocytes # (Auto) 0.4 K/mm3 (0.0-0.8); Monocytes % (Auto) 6.2 % (0.0-7.3); Platelet Count 105 K/mm3 (140-440); Red Blood Count 4.03 M/mm3 (3.65-5.03); Red Cell Distribution Width 12.6 % (13.2-15.2)
[2019-03-14 14:32] LABS: INR 0.99 (0.87-1.13)
[2019-03-14 14:33] LABS: Partial Thromboplastin Time 28.4 Sec. (24.2-36.6)
[2019-03-14 15:07] LABS: Alanine Aminotransferase 29 units/L (7-56); Albumin 4.1 g/dL (3.9-5); BUN/Creatinine Ratio 10; Blood Urea Nitrogen 6 mg/dL (7-17); Calcium 8.6 mg/dL (8.4-10.2); Hemolysis Index 24
[2019-03-14] MEDS ORDERED: PROCHLORPERAZINE EDISYLATE 10 MG/2 ML VIAL IV ONE (15:09)
--- NOTE | 2019-03-14 15:21 | History and Physical Report ---
History of Present Illness Date of examination: 03/14/19 Date of admission: 03/14/19 Chief complaint: N/V History of present illness: Patient is a 33 y/o female with no significant PMH who presented to ED with c/o intractable N/V after just being discharged yesterday for similar symptoms. Labs and previous images including abd ultrasound and CT abdomen on prior admission unremarkable. She Reports acute N/V over the past ~1 week. Admits to associated abdominal soreness but denies fever, CP, SOB, odynophagia/dysphagia, signs of bleeding or LGI symptoms such as diarrhea or constipation. No NSAIDs or hx of PUD. Admits to frequent marijuana use (every 2 days; UDS + 03/12/19). No ETOH abuse. She was called for admission for further Mx. Past History Past Medical History: No medical history Past Surgical History: cholecystectomy Social history: other (marijuana). denies: smoking, alcohol abuse Family history: hypertension Review of System: Constitutional: no fever, no chills, no weight loss Ears, eyes, nose, mouth and throat: no nasal congestion, no nasal discharge, no sinus pressure, no vision change, no red eye. Neck: No neck pain or rigidity. Cardiovascular: No chest pain, no orthopnea, no palpitations, no leg swelling Respiratory: No shortness of breath, no cough, no congestion, no wheezing Gastrointestinal: + abdominal pain, + nausea, + vomiting Genitourinary : no dysuria, no hematuria Musculoskeletal: no joint swelling or muscle ache Integumentary: no rash, no pruritis Neurological: no parathesias, no numbness, no tingling Endocrine: no cold or heat intolerance, no polyuria or polydipsia Hematologic/Lymphatic: no easy bruising, no easy bleeding, no gland swelling Allergic/Immunologic: no urticaria, no angioedema. Medications and Allergies Allergies Allergy/AdvReac Type Severity Reaction Status Date / Time No Known Allergies Allergy Unverified 03/12/19 14:58 Home Medications Medication Instructions Recorded Confirmed Last Taken Type Ondansetron [Zofran Odt] 4 mg PO Q8HR #20 tab.rapdis 03/13/19 Unknown Rx Active Meds: Active Medications Potassium Chloride (Kcl 10meq/100ml) 10 meq in 100 mls @ 100 mls/hr IV Q1H TRACE Stop: 03/14/19 19:59 Exam - Physical Exam Narrative exam: GENERAL: well-developed and well-nourished AAF lying on bed appeared to be in no discomfort. HEENT: Normocephalic. Atraumatic. No conjunctival congestion or icterus. Patient has moist mucous membranes. NECK: Supple. Trachea midline. CHEST/LUNGS: Clear to auscultated bilaterally, breathing nonlabored. No wheezes crackles or rhonchi. HEART/CARDIOVASCULAR: Regular in rate and rhythm. S1 and S2 positive. ABDOMEN: Abdomen is soft, diffuse tender. Patient has normal bowel sounds. SKIN: There is no rash. Warm and dry. NEURO: No focal motor deficit. Follows command. MUSCULOSKELETAL: No joint effusion or tenderness. EXTRIMITY: No edema, no cyanosis or clubbing. PSYCH: Cooperative. - Constitutional Vitals: Temp Pulse Resp BP Pulse Ox 98.5 F 98 H 16 127/74 100 03/14/19 13:11 03/14/19 13:11 03/14/19 13:11 03/14/19 13:11 03/14/19 13:11 Results - Labs CBC & Chem 7: 03/14/19 14:00 03/14/19 14:00 Labs: Abnormal lab results 03/14/19 03/14/19 Range/Units 14:00 14:00 MCHC 35 H (30-34) % RDW 12.6 L (13.2-15.2) % Plt Count 105 L (140-440) K/mm3 Seg Neutrophils % 73.9 H (40.0-70.0) % Potassium 3.1 L (3.6-5.0) mmol/L Carbon Dioxide 16 L (22-30) mmol/L BUN 6 L (7-17) mg/dL Creatinine 0.6 L (0.7-1.2) mg/dL Total Bilirubin 1.50 H (0.1-1.2) mg/dL Lipase 8 L (13-60) units/L Assessment and Plan Intractable N/V - gastritis vs PUD vs due to marijuana Substance abuse with marijuana hypokalamia due to N/V dehydration Dvt Px - admit medsurge, monitor BMP, replete electrolyte - consult GI, scheduled reglan, PPI, carafate, as needed ativan - plan for EGD tomorrow, NPO past midnight - DVT Px with lovenox Radiological data: Abdomen US 03/12/19: 1. No acute findings. 2. Previous cholecystectomy. CT abdomen and pelvis 03/12/19: 1. No acute findings.
--- NOTE | 2019-03-14 15:50 | Gastroenterology Consultation ---
History of Present Illness - Reason for Consult Consult date: 03/14/19 N/V Requesting physician: SAGAR LOAIZA - History of Present Illness Patient is a 33 y/o female with no significant PMH who presented to ED with c/o intractable N/V after just being discharged yesterday for similar symptoms. Labs and previous imagins to includ abd ultrasound and CT unremarkable. This afternoon patient was on stretcher w/o acute distress. Reports acute N/V over the past ~1 week. Admits to associated abdominal soreness but denies fever, CP, SOB, odynophagia/dysphagia, signs of bleeding or LGI symptoms such as diarrhea or constipation. No recent foreign travel, ingestion of food/water from new or different sources, or known ill contacts. No NSAIDs or hx of PUD. Last EGD ~12 years ago with negative results prior to cholecystectomy. Admits to frequent marijuana use (every 2 days; UDS + 03/12/19). No ETOH abuse. Past History Past Medical History: No medical history Past Surgical History: cholecystectomy Social history: other (marijuana). denies: smoking, alcohol abuse Family history: hypertension Medications and Allergies Allergies Allergy/AdvReac Type Severity Reaction Status Date / Time No Known Allergies Allergy Unverified 03/12/19 14:58 Home Medications Medication Instructions Recorded Confirmed Last Taken Type Ondansetron [Zofran Odt] 4 mg PO Q8HR #20 tab.rapdis 03/13/19 Unknown Rx Active Meds: Active Medications Potassium Chloride (Kcl 10meq/100ml) 10 meq in 100 mls @ 100 mls/hr IV Q1H TRACE Stop: 03/14/19 19:59 Potassium Chloride 30 meq/ (Dextrose/Sodium Chloride) 1,015 mls @ 100 mls/hr IV DIRECT TRACE Metoclopramide HCl (Reglan) 10 mg IV Q6H TRACE Ondansetron HCl (Zofran) 4 mg IV Q6H PRN PRN Reason: N/V IF NPO AND NO IV ACCESS Pantoprazole Sodium (Protonix) 40 mg IV QDAY ONE Stop: 03/14/19 16:01 Sucralfate (Carafate) 1 gm PO QACHS ONE Stop: 03/14/19 16:01 medications reviewed/updated as required Review of Systems - Review of Systems All systems: negative Gastrointestinal: nausea, vomiting Exam - Constitutional Vital Signs: Temp Pulse Resp BP Pulse Ox 98.5 F 98 H 16 127/74 100 03/14/19 13:11 03/14/19 13:11 03/14/19 13:11 03/14/19 13:11 03/14/19 13:11 General appearance: no acute distress - EENT Eyes: PERRL, EOM intact ENT: hearing intact - Respiratory Respiratory effort: normal - Cardiovascular Rhythm: regular - Gastrointestinal General gastrointestinal: Present: soft, tender (slight generalized TTP), non- distended, normal bowel sounds - Integumentary Integumentary: Present: warm, dry - Neurologic Neurological: alert and oriented x3 - Labs CBC & Chem 7: 03/14/19 14:00 03/14/19 14:00 Lab Results: Laboratory Results - last 24 hr 03/14/19 03/14/19 03/14/19 14:00 14:00 14:00 WBC 6.0 RBC 4.03 Hgb 12.9 Hct 36.7 MCV 91 MCH 32 MCHC 35 H RDW 12.6 L Plt Count 105 L Lymph % (Auto) 19.3 [place] % (Auto) 6.2 Eos % (Auto) 0.1 Baso % (Auto) 0.5 Lymph # 1.2 [place] # 0.4 Eos # 0.0 Baso # 0.0 Seg Neutrophils % 73.9 H Seg Neutrophils # 4.5 PT 13.0 INR 0.99 APTT 28.4 Sodium 137 Potassium 3.1 L Chloride 103.6 Carbon Dioxide 16 L Anion Gap 21 BUN 6 L Creatinine 0.6 L Estimated GFR > 60 BUN/Creatinine Ratio 10 Glucose 70 Calcium 8.6 D Total Bilirubin 1.50 H AST 38 ALT 29 Alkaline Phosphatase 45 Total Protein 7.1 D Albumin 4.1 Albumin/Globulin Ratio 1.4 Lipase 8 L HCG, Qual Urine Color Urine Turbidity Urine pH Ur Specific [place] Urine Protein Urine Glucose (UA) Urine Ketones Urine Blood Urine Nitrite Urine Bilirubin Urine Urobilinogen Ur Leukocyte Esterase Urine WBC (Auto) Urine RBC (Auto) U Epithel Cells (Auto) Urine Mucus 03/14/19 03/14/19 14:00 Unknown WBC RBC Hgb Hct MCV MCH MCHC RDW Plt Count Lymph % (Auto) [place] % (Auto) Eos % (Auto) Baso % (Auto) Lymph # [place] # Eos # Baso # Seg Neutrophils % Seg Neutrophils # PT INR APTT Sodium Potassium Chloride Carbon Dioxide Anion Gap BUN Creatinine Estimated GFR BUN/Creatinine Ratio Glucose Calcium Total Bilirubin AST ALT Alkaline Phosphatase Total Protein Albumin Albumin/Globulin Ratio Lipase HCG, Qual Negative Urine Color Straw Urine Turbidity Clear Urine pH 6.0 Ur Specific [place] 1.009 Urine Protein <15 mg/dl Urine Glucose (UA) Neg Urine Ketones 20 Urine Blood Lg Urine Nitrite Neg Urine Bilirubin Neg Urine Urobilinogen < 2.0 Ur Leukocyte Esterase Neg Urine WBC (Auto) 1.0 Urine RBC (Auto) 77.0 U Epithel Cells (Auto) 6.0 Urine Mucus Few Assessment and Plan 1.intractable N/V -afebrile -WBC, H/H, and LFTs WNL -abd CT and abd U/S on 03/12/19 w/o acute findings (s/p CCY) -UDS + marijuana 03/12/19 -etiology-most likely 2/2 cannabinoid hyperemesis vs other -will schedule for EGD tomorrow for further evaluation to r/o GI pathology -okay for clears as tolerated today then NPO after MN -continue PPI and antiemetics -avoid narcotics for this may exacerbate symptoms -continue supportive care -substance (marijuana) cessation discussed/encouraged with patient -will follow
[2019-03-14] MEDS ORDERED: PANTOPRAZOLE 40 MG INJ IV ONE ×2 (16:00→16:16)
[2019-03-14] MEDS ORDERED: SUCRALFATE 1 GM/10 ML ORAL LIQD PO ONE (16:00)
[2019-03-14] MEDS ORDERED: POTASSIUM CHLORIDE 10 MEQ 10 MEQ/100 ML BAG IV ONE (16:09)
[2019-03-14] MEDS ORDERED: METOCLOPRAMIDE 10 MG/2 ML INJ ONE (16:16)
[2019-03-14] MEDS ORDERED: SUCRALFATE 1 GM/10 ML ORAL LIQD ONE (16:16)
[2019-03-14] MEDS: POTASSIUM CHLORIDE 10 MEQ 10 MEQ/100 ML BAG IV SCH ×3 (16:17→21:31)
[2019-03-14] MEDS: METOCLOPRAMIDE 10 MG/2 ML INJ IV SCH ×2 (16:17→21:31)
[2019-03-14] MEDS ORDERED: POTASSIUM CHLORIDE 30 MEQ in D5W/0.9% NACL 1,000 ML IV SCH (16:30)
[2019-03-14] MEDS ORDERED: POTASSIUM CHLORIDE 10 MEQ 30 MEQ/300 ML BAG IV ONE (16:48)
[2019-03-14] MEDS: ONDANSETRON 4 MG/2 ML INJ IV PRN (18:10)
[2019-03-14] MEDS ORDERED: hydrALAZINE 20 MG/1 ML INJ IV PRN (18:22)
[2019-03-14] MEDS ORDERED: MORPHINE 2 MG/1 ML INJ IV PRN (18:22)
[2019-03-14] MEDS ORDERED: HYDROcodone/ACETAMINOPHEN 5-325 MG TAB PO PRN (18:22)
[2019-03-14] MEDS ORDERED: ACETAMINOPHEN 325 MG TAB PO PRN (18:22)
[2019-03-14] MEDS: ENOXAPARIN 40 MG/0.4 ML INJ SUB-Q SCH (21:31)
[2019-03-15] MEDS: POTASSIUM CHLORIDE 10 MEQ 10 MEQ/100 ML BAG IV SCH (00:46)
[2019-03-15] MEDS: ONDANSETRON 4 MG/2 ML INJ IV PRN (00:46)
[2019-03-15] MEDS: METOCLOPRAMIDE 10 MG/2 ML INJ IV SCH ×4 (04:16→21:45)
[2019-03-15] MEDS ORDERED: WATER FOR IRRIG STERILE 250 ML BOTTLE IR ONE (07:11)
[2019-03-15] MEDS ORDERED: WATER FOR IRRIG STERILE 1,000 ML BOTTLE ONE (07:11)
[2019-03-15 07:56] LABS: BUN/Creatinine Ratio 7; Blood Urea Nitrogen 4 mg/dL (7-17); Calcium 8.5 mg/dL (8.4-10.2); Hemolysis Index 7
[2019-03-15] MEDS: SODIUM CHLORIDE 0.9% 1000 ML 1,000 ML IV SCH ×2 (11:31→18:07)
[2019-03-15] MEDS ORDERED: SODIUM CHLORIDE 0.9% 1000 ML 1,000 ML IV SCH (13:00)
--- NOTE | 2019-03-15 13:15 | Anesthesia Day of Surgery ---
Anesthesia Day of Surgery - Day of Surgery Patient Examined: Yes Patient H&P Reviewed: Yes Patient is NPO: Yes
--- NOTE | 2019-03-15 13:15 | Anesthesia Consultation ---
Anesthesia Consult and Med Hx Date of service: 03/15/19 - Airway Anesthetic Teeth Evaluation: Good ROM Head & Neck: Adequate Mental/Hyoid Distance: Adequate Mallampati Class: Class II Intubation Access Assessment: Good - Pulmonary Exam CTA: Yes - Cardiac Exam Cardiac Exam: RRR - Pre-Operative Health Status ASA Pre-Surgery Classification: ASA1 Proposed Anesthetic Plan: MAC - Pulmonary Hx Pneumonia: No - Central Nervous System Hx Psychiatric Problems: No - Other Systems Hx Substance Use: Yes (MARIJUANA) Hx Cancer: No
--- NOTE | 2019-03-15 13:48 | Operative Report ---
Operative Report Operative Report: Esophagogastroduodenoscopy Procedure Note Date of procedure: 03/15/2019 Endoscopist: Brijesh Rhodes Pre-op diagnosis/indication: Intractable nausea/vomiting Post-op diagnosis: Mild gastritis in fundus, otherwise normal upper endoscopy MEDICATIONS: MAC COMPLICATIONS: No immediate complications ESTIMATED BLOOD LOSS:None DESCRIPTION OF PROCEDURE: After consent was obtained, the patient was placed in the left lateral decubitis position. The olympus endoscope was inserted into the patient's mouth under direct vision and advanced to the 2nd portion of the duodenum without difficulty. The patient tolerated the procedure well. The views of the mucosa were good. The patient's vital signs were monitored continuously throughout the procedure. FINDINGS: The esophagus appeared normal. There was mild erythematous mucosa in the fundus of the stomach, likely due to recent vomiting episodes. otherwise, the stomach appeared normal. The duodenum appeared normal. IMPRESSION: 1. Mild erythematous gastric mucosa likely from vomiting episodes. Otherwise, unremarkable upper endoscopy without source of symptoms seen during procedure. RECOMMENDATIONS: -will restart diet given improved symptoms -suspect component of hyperemesis from marijuana. recommended marijuana cessation with pt -okay to discharge from gi stand point if tolerating po Will sign off, please call as needed or with questions.
[2019-03-15] MEDS ORDERED: PROPOFOL 200 MG/20 ML VIAL IV ONE (13:59)
--- NOTE | 2019-03-15 14:19 | Progress Note ---
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 Hypokalamia due to N/V -Repleted and improved. -We'll check magnesium level Metabolic acidosis -On oral supplements, will monitor level Hyperbilirubinemia -Recent imagings done were neg Disposition: For discharge in a.m. if patient tolerates oral diet History Interval history: Patient was seen today before EGD. She reports no vomiting or abdominal pain. Hospitalist Physical - Constitutional Vitals: Temp Pulse Resp BP Pulse Ox 98.1 F 81 14 100/70 99 03/15/19 12:56 03/15/19 13:46 03/15/19 13:46 03/15/19 13:46 03/15/19 13:46 General appearance: Present: no acute distress - EENT Eyes: Present: PERRL, EOM intact ENT: hearing intact, clear oral mucosa - Neck Neck: Present: supple - Respiratory Respiratory effort: normal Respiratory: bilateral: CTA - Cardiovascular Rhythm: regular Heart Sounds: Present: S1 & S2 - Extremities Extremities: No edema - Abdominal General gastrointestinal: soft, non-tender, normal bowel sounds - Integumentary Integumentary: Present: warm, dry - Psychiatric Psychiatric: appropriate mood/affect - Neurologic Neurologic: CNII-XII intact Results - Labs CBC & Chem 7: 03/14/19 14:00 03/15/19 06:42 Labs: Laboratory Last Values WBC 6.0 K/mm3 (4.5-11.0) 03/14/19 14:00 RBC 4.03 M/mm3 (3.65-5.03) 03/14/19 14:00 Hgb 12.9 gm/dl (10.1-14.3) 03/14/19 14:00 Hct 36.7 % (30.3-42.9) 03/14/19 14:00 MCV 91 fl (79-97) 03/14/19 14:00 MCH 32 pg (28-32) 03/14/19 14:00 MCHC 35 % (30-34) H 03/14/19 14:00 RDW 12.6 % (13.2-15.2) L 03/14/19 14:00 Plt Count 105 K/mm3 (140-440) L 03/14/19 14:00 Lymph % (Auto) 19.3 % (13.4-35.0) 03/14/19 14:00 [place] % (Auto) 6.2 % (0.0-7.3) 03/14/19 14:00 Eos % (Auto) 0.1 % (0.0-4.3) 03/14/19 14:00 Baso % (Auto) 0.5 % (0.0-1.8) 03/14/19 14:00 Lymph # 1.2 K/mm3 (1.2-5.4) 03/14/19 14:00 [place] # 0.4 K/mm3 (0.0-0.8) 03/14/19 14:00 Eos # 0.0 K/mm3 (0.0-0.4) 03/14/19 14:00 Baso # 0.0 K/mm3 (0.0-0.1) 03/14/19 14:00 Seg Neutrophils % 73.9 % (40.0-70.0) H 03/14/19 14:00 Seg Neutrophils # 4.5 K/mm3 (1.8-7.7) 03/14/19 14:00 PT 13.0 Sec. (12.2-14.9) 03/14/19 14:00 INR 0.99 (0.87-1.13) 03/14/19 14:00 APTT 28.4 Sec. (24.2-36.6) 03/14/19 14:00 Sodium 140 mmol/L (137-145) 03/15/19 06:42 Potassium 4.2 mmol/L (3.6-5.0) D 03/15/19 06:42 Chloride 106.7 mmol/L (98-107) 03/15/19 06:42 Carbon Dioxide 14 mmol/L (22-30) L 03/15/19 06:42 Anion Gap 24 mmol/L 03/15/19 06:42 BUN 4 mg/dL (7-17) L 03/15/19 06:42 Creatinine 0.6 mg/dL (0.7-1.2) L 03/15/19 06:42 Estimated GFR > 60 ml/min 03/15/19 06:42 BUN/Creatinine Ratio 7 % 03/15/19 06:42 Glucose 90 mg/dL (65-100) 03/15/19 06:42 Calcium 8.5 mg/dL (8.4-10.2) 03/15/19 06:42 Total Bilirubin 1.50 mg/dL (0.1-1.2) H 03/14/19 14:00 AST 38 units/L (5-40) 03/14/19 14:00 ALT 29 units/L (7-56) 03/14/19 14:00 Alkaline Phosphatase 45 units/L (35-129) 03/14/19 14:00 Total Protein 7.1 g/dL (6.3-8.2) D 03/14/19 14:00 Albumin 4.1 g/dL (3.9-5) 03/14/19 14:00 Albumin/Globulin Ratio 1.4 % 03/14/19 14:00 Lipase 8 units/L (13-60) L 03/14/19 14:00 HCG, Qual Negative (Negative) 03/14/19 14:00 Urine Color Straw (Yellow) 03/14/19 Unknown Urine Turbidity Clear (Clear) 03/14/19 Unknown Urine pH 6.0 (5.0-7.0) 03/14/19 Unknown Ur Specific [place] 1.009 (1.003-1.030) 03/14/19 Unknown Urine Protein <15 mg/dl mg/dL (Negative) 03/14/19 Unknown Urine Glucose (UA) Neg mg/dL (Negative) 03/14/19 Unknown Urine Ketones 20 mg/dL (Negative) 03/14/19 Unknown Urine Blood Lg (Negative) 03/14/19 Unknown Urine Nitrite Neg (Negative) 03/14/19 Unknown Urine Bilirubin Neg (Negative) 03/14/19 Unknown Urine Urobilinogen < 2.0 mg/dL (<2.0) 03/14/19 Unknown Ur Leukocyte Esterase Neg (Negative) 03/14/19 Unknown Urine WBC (Auto) 1.0 /HPF (0.0-6.0) 03/14/19 Unknown Urine RBC (Auto) 77.0 /HPF (0.0-6.0) 03/14/19 Unknown U Epithel Cells (Auto) 6.0 /HPF (0-13.0) 03/14/19 Unknown Urine Mucus Few /HPF 03/14/19 Unknown Active Medications - Current Medications Current Medications: Generic Name Dose Route Start Last Admin Trade Name Freq PRN Reason Stop Dose Admin Acetaminophen 650 mg 03/14/19 18:22 Tylenol PO Q4H PRN Pain MILD(1-3)/Fever >100.5/RODRIGUEZ Enoxaparin Sodium 40 mg 03/14/19 22:00 03/14/19 21:31 Enoxaparin SUB-Q 40 mg QDAY@2200 TRACE Administration Hydralazine HCl 5 mg 03/14/19 18:22 Apresoline IV Q30MIN PRN HTN SYS>180 AND SHAKILA>100 Potassium Chloride 30 meq/ 1,015 mls @ 100 mls/hr 03/14/19 16:30 03/14/19 17:13 Dextrose/Sodium Chloride IV 100 mls/hr DIRECT TRACE Administration Sodium Chloride 1,000 mls @ 50 mls/hr 03/15/19 08:00 03/15/19 11:31 Nacl 0.9% 1000 Ml IV 50 mls/hr DIRECT TRACE Administration Sodium Chloride 1,000 mls @ 50 mls/hr 03/15/19 13:00 Nacl 0.9% 1000 Ml IV DIRECT TRACE Lorazepam 2 mg 03/14/19 19:12 Ativan IV Q4H PRN N/V unrelieved by Folry Metoclopramide HCl 10 mg 03/14/19 16:00 03/15/19 11:21 Reglan IV 10 mg Q6H TRACE Administration Ondansetron HCl 4 mg 03/14/19 15:22 03/15/19 00:46 Zofran IV 4 mg Q6H PRN Administration N/V IF NPO AND NO IV ACCESS Sodium Bicarbonate 650 mg 03/15/19 14:13 Sodium Bicarbonate PO TID TRACE
[2019-03-15] MEDS: SODIUM BICARBONATE 650 MG TAB PO SCH ×2 (15:34→21:40)
[2019-03-15] MEDS: LORazepam 2 MG/ML VIAL IV PRN (19:30)
[2019-03-15] MEDS: ENOXAPARIN 40 MG/0.4 ML INJ SUB-Q SCH (21:40)
[2019-03-16] MEDS: LORazepam 2 MG/ML VIAL IV PRN (00:13)
[2019-03-16] MEDS: METOCLOPRAMIDE 10 MG/2 ML INJ IV SCH ×2 (05:24→10:21)
[2019-03-16 07:55] LABS: BUN/Creatinine Ratio 7; Blood Urea Nitrogen 5 mg/dL (7-17); Calcium 8.5 mg/dL (8.4-10.2); Hemolysis Index 3
[2019-03-16] MEDS: SODIUM BICARBONATE 650 MG TAB PO SCH ×3 (09:53→15:11)
[2019-03-16] MEDS ORDERED: MAGNESIUM SULFATE 2 GM/50 ML BAG IV ONE (10:00)
[2019-03-16] MEDS ORDERED: POTASSIUM CHLORIDE ER 20 MEQ TAB PO SCH (10:00)
[2019-03-16] MEDS: ONDANSETRON 4 MG/2 ML INJ IV PRN (11:03)
[2019-03-16] MEDS ORDERED: MORPHINE 2 MG/1 ML INJ IV ONE (13:18)
--- NOTE | 2019-03-16 13:58 | Discharge Summary ---
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 Hypokalamia due to N/V -Repleted and improved. Hypomagnesemia -Repleted and improved. Metabolic acidosis treated with oral supplements Hyperbilirubinemia At discharge, patient was tolerating her oral diet. She was counseled on marijuana use cessation, however she insisted that her problem was not due to marijuana use and she vocalized how unsatisfied she was with the care she received. Disposition: TO HOME OR SELFCARE Time spent for discharge: 40 minutes which included counseling Core Measure Documentation - Palliative Care Palliative Care/ Comfort Measures: Not Applicable - Core Measures Any of the following diagnoses?: none Exam - Constitutional Vitals: Temp Pulse Resp BP Pulse Ox 98.5 F 64 20 137/85 98 03/16/19 04:55 03/15/19 21:16 03/16/19 04:55 03/16/19 04:55 03/15/19 21:16 General appearance: Present: no acute distress, well-nourished - EENT Eyes: Present: PERRL, EOM intact ENT: hearing intact, clear oral mucosa - Neck Neck: Present: supple, normal ROM - Respiratory Respiratory effort: normal Respiratory: bilateral: CTA - Cardiovascular Rhythm: regular Heart Sounds: Present: S1 & S2. Absent: rub, click - Extremities Extremities: No edema Peripheral Pulses: within normal limits - Abdominal General gastrointestinal: Present: soft, non-tender, non-distended, normal bowel sounds - Integumentary Integumentary: Present: clear, warm, dry - Musculoskeletal Musculoskeletal: gait normal, strength equal bilaterally - Psychiatric Psychiatric: cooperative - Neurologic Neurologic: CNII-XII intact, moves all extremities Plan Follow up with: PRIMARY CARE, [Referring] - 7 Days Prescriptions: Potassium Chloride [K-Dur] 20 meq PO QDAY #5 tablet HYDROcodone/APAP 5-325 [[place] 5/325] 1 each PO Q6HR PRN #10 tablet PRN Reason: Pain , Severe (7-10) Promethazine [Phenergan] 25 mg PO Q8HR PRN #20 tab PRN Reason: Nausea Sodium Bicarbonate 650 mg PO TID #9 tablet
[2019-03-16 14:35] VITALS: BP 142/86
== END 2019-03-16 15:59 | disposition home or self-care (01) ==
LOC: ED 12:18 → 3A 15:26
PROVIDERS: ADMIT Internal Medicine; ATTEND Internal Medicine
DX: R11.2 Nausea with vomiting, unspecified (principal); R10.33 Periumbilical pain; F12.10 Cannabis abuse, uncomplicated; E87.6 Hypokalemia; E86.0 Dehydration; Z90.49 Acquired absence of other specified parts of digestive tract
CPT/HCPCS: 36415; 43235; 80048; 80053; 81001; 83690; 83735; 84703; 85025; 85610; 85730; 87116; 96361; 96365; 96366; 96367; 96372; 96375; 96376; 99284; C9113; G0378; J0780; J1200; J1650; J2060; J2405; J2704; J2765; J3010; J3475; J3480; J7030; J7042; J2270